=== PATIENT | female | born 1950 | race Two or more races ===

== ENCOUNTER 2018-06-21 14:47 | Outpatient (CLI) | payer OTHER | END 2018-06-21 15:00 | disposition home or self-care (01) | LOC: RAD 501 14:47 | DX: M25.562 Pain in left knee (principal) ==

== ENCOUNTER 2023-06-30 09:18 | Outpatient (CLI) | payer OTHER | END 2023-06-30 09:21 | disposition home or self-care (01) | LOC: NUCLEAR 09:18 | PROVIDERS: ATTEND Internal Medicine Cardiovascular Disease | DX: I87.2 Venous insufficiency (chronic) (peripheral) (principal) ==

== ENCOUNTER 2024-03-10 12:52 | Emergency (ER) | payer OTHER ==
[~2024-03-10] VITALS: Ht 167.6 cm; Wt 95.3 kg
[2024-03-10] MEDS ORDERED: AVAPRO300 MG (13:00)
[2024-03-10] MEDS ORDERED: CARDURA XL4 MG (13:02)
[2024-03-10] MEDS ORDERED: HORIZANT300 MG (13:02)
[2024-03-10 14:16] LABS: HEMATOCRIT 27.5 % (36.0-45.00); MEAN CELL VOLUME 74.3 fL (80.00-100.00); MEAN CORPUSCULAR HGB CONC 32.2 g/dl (32.0-36.0); PLATELET COUNT 331 K/uL (150-450); RED CELL DISTRIBUTION WIDTH 18.4 % (11.5-14.5)
[2024-03-10 14:20] LABS: HEMOGLOBIN 8.9 g/dL (12.0-15.00)
[2024-03-10 14:36] LABS: CALCIUM 9.2 mg/dL (8.5-10.1); CREATININE SERUM 0.8 mg/dL (0.55-1.02); GFR 70.51; POTASSIUM 3.41 mEq/L (3.5-5.1)
[2024-03-10 15:07] LABS: URINE APPEARANCE Clear; URINE BILIRRUBIN Negative (NEGATIVE); URINE BLOOD Negative; URINE COLOR Yellow; URINE GLUCOSE Negative (NEGATIVE); URINE KETONE Negative (NEGATIVE); URINE LEUKOCYTE Trace; URINE NITRATE Negative; URINE PROTEIN Negative (NEGATIVE); URINE UROBILINOGEN 0.2 E.U./dl
[2024-03-10 15:08] LABS: URINE BACTERIA 24.4 uL (0.0-1933); URINE EPITHELIAL CELLS 6.6 uL (0.0-38.8); URINE WBC 19.2 uL (0.0-23.2)
[2024-03-10 15:12] LABS: URINE CAST 0.14 uL (0.0-1.40); URINE RBC 0.5 uL (0.0-20.8)
== END 2024-03-10 18:24 | disposition home or self-care (01) ==
LOC: ER 12:54 → EDBD 12:54 → ER 13:30
PROVIDERS: Emergency Medicine
DX: G81.90 Hemiplegia, unspecified affecting unspecified side (principal); I63.9 Cerebral infarction, unspecified; I10 Essential (primary) hypertension